=== PATIENT | male | born 2000 | race African-American/Black ===

== ENCOUNTER 2024-07-31 15:52 | Emergency (ER) | payer OTHER ==
[~2024-07-31] VITALS: Ht 175.3 cm; Wt 74.4 kg
[2024-07-31 16:59] VITALS: BP 142/65
== END 2024-07-31 16:59 | disposition home or self-care (01) ==
LOC: ED 15:52
DX: S86.112A Strain of other muscle(s) and tendon(s) of posterior muscle group at lower leg level, left leg, initial encounter (principal); X58.XXXA Exposure to other specified factors, initial encounter; Y93.67 Activity, basketball; Z88.8 Allergy status to other drugs, medicaments and biological substances
CPT/HCPCS: 99283

== ENCOUNTER 2025-07-17 18:19 | Emergency (ER) | payer OTHER ==
[~2025-07-17] VITALS: Ht 175.3 cm; Wt 77.4 kg
[2025-07-17 19:14] VITALS: BP 124/71
== END 2025-07-17 19:14 | disposition home or self-care (01) ==
LOC: ED 18:19
DX: M76.61 Achilles tendinitis, right leg (principal); X50.9XXA Other and unspecified overexertion or strenuous movements or postures, initial encounter; Y93.64 Activity, baseball; Z88.8 Allergy status to other drugs, medicaments and biological substances
CPT/HCPCS: 99283